=== PATIENT | male | born 1955 | race Hispanic/Latino ===

== ENCOUNTER 2019-07-11 11:35 | Emergency (ER) | payer BC ==
[2019-07-11 12:56] LABS: Absolute Lymphocytes (CBC) 1.2 K/uL (0.7-4.9); Basophils % 0.4 % (0-1.3); Hematocrit 41.9 % (39.6-49.0); Lymphocytes % 14.2 % (15.3-44.8); MPV 12.3 fL (7.6-11.3); RBC Red Blood Cell Count 4.55 M/uL (4.33-5.43)
[2019-07-11 13:13] LABS: Albumin 3.7 g/dL (3.4-5.0); Bilirubin Direct 0.3 mg/dL (0-0.2); Bilirubin Total 1.3 mg/dL (0.2-1.0); Protein, Total 7.1 g/dL (6.4-8.2)
--- NOTE | 2019-07-11 13:56 | RAD REPORT ---
EXAM DESCRIPTION: CT - Abdomen Pelvis W Contrast - 07/11/2019 1:32 pm CLINICAL HISTORY: Abdominal pain COMPARISON: 2008 TECHNIQUE: Computed axial tomography of the abdomen pelvis was obtained. 100 cc Isovue-300 was admin istered intravenously. Oral contrast was not requested which limits evaluation of bowel. All CT scans are performed using dose optimization technique as appropriate and may include automated exposure control or mA/KV adjustment according to patient size. FINDINGS: Fatty liver Spleen, pancreas, adrenal and kidneys appear unremarkable. Diverticula stem from the colon. Mild to moderate stranding is present adjacent to proximal sigmoid c olon. No extraluminal air. No abscess. Normal appendix. Small inguinal hernias contain fat IMPRESSION: Mild to moderate sigmoid diverticulitis
[2019-07-11] MEDS ORDERED: levoFLOXacin 500 MG TAB ONE (14:07)
[2019-07-11] MEDS ORDERED: metroNIDAZOLE 500 MG TABLET ONE (14:07)
--- NOTE | 2019-07-11 14:53 | EDPHYS ---
Physician Documentation [facility] Name: Deangelo Parsons Age: 64 yrs Sex: Male : 1955 Arrival Date: 07/11/2019 Time: 11:37 Bed 7 Private MD: Curt Cobian R ED Physician Isreal Shaikh HPI: 07/11 15:31 This 64 yrs old Male presents to ER via Ambulatory with complaints of kdr Abdominal Pain. 15:31 The patient presents with abdominal pain. Onset: The symptoms/episode began/occurred kdr gradually, 1 week(s) ago. The symptoms do not radiate. Associated signs and symptoms: none. The symptoms are described as achy, crampy, intermittent. Severity of pain: At its worst the pain was mild just prior to arrival, in the emergency department the pain is unchanged. The patient has not experienced similar symptoms in the past. The patient has not recently seen a physician. Historical: - Allergies: 11:40 No Known Allergies; sv - PMHx: 11:41 Hypertension; sv 11:42 Diabetes - NIDDM; sv - PSHx: 11:40 None; sv - Immunization history:: Adult Immunizations up to date. - Social history:: Smoking status: Patient/guardian denies using tobacco. - Ebola Screening: : No symptoms or risks identified at this time. ROS: 15:31 Constitutional: Negative for fever, chills, and weight loss, Eyes: Negative for injury, kdr pain, redness, and discharge, ENT: Negative for injury, pain, and discharge, Neck: Negative for injury, pain, and swelling, Cardiovascular: Negative for chest pain, palpitations, and edema, Respiratory: Negative for shortness of breath, cough, wheezing, and pleuritic chest pain, Back: Negative for injury and pain, : Negative for injury, bleeding, discharge, and swelling, MS/Extremity: Negative for injury and deformity, Skin: Negative for injury, rash, and discoloration, Neuro: Negative for headache, weakness, numbness, tingling, and seizure activity. Psych: Negative for depression, anxiety, suicide ideation, homicidal ideation, and hallucinations, Allergy/Immunology: Negative for hives, rash, and allergies, Endocrine: Negative for neck swelling, polydipsia, polyuria, polyphagia, and marked weight changes, Hematologic/Lymphatic: Negative for swollen nodes, abnormal bleeding, and unusual bruising. 15:31 Abdomen/GI: Positive for abdominal pain, Negative for nausea, vomiting, and diarrhea, rectal bleeding, bowel incontinence. Exam: 15:31 Constitutional: This is a well developed, well nourished patient who is awake, alert, kdr and in no acute distress. Head/Face: Normocephalic, atraumatic. Eyes: Pupils equal round and reactive to light, extra-ocular motions intact. Lids and lashes normal. Conjunctiva and sclera are non-icteric and not injected. Cornea within normal limits. Periorbital areas with no swelling, redness, or edema. Neck: Trachea midline, no thyromegaly or masses palpated, and no cervical lymphadenopathy. Supple, full range of motion without nuchal rigidity, or vertebral point tenderness. No Meningismus. Chest/axilla: Normal chest wall appearance and motion. Nontender with no deformity. No lesions are appreciated. Cardiovascular: Regular rate and rhythm with a normal S1 and S2. No gallops, murmurs, or rubs. Normal PMI, no JVD. No pulse deficits. Respiratory: Lungs have equal breath sounds bilaterally, clear to auscultation and percussion. No rales, rhonchi or wheezes noted. No increased work of breathing, no retractions or nasal flaring. Back: No spinal tenderness. No costovertebral tenderness. Full range of motion. Skin: Warm, dry with normal turgor. Normal color with no rashes, no lesions, and no evidence of cellulitis. MS/ Extremity: Pulses equal, no cyanosis. Neurovascular intact. Full, normal range of motion. Neuro: Awake and alert, GCS 15, oriented to person, place, time, and situation. Cranial nerves II-XII grossly intact. Motor strength 5/5 in all extremities. Sensory grossly intact. Cerebellar exam normal. Normal gait. Psych: Awake, alert, with orientation to person, place and time. Behavior, mood, and affect are within normal limits. 15:31 Abdomen/GI: Inspection: abdomen appears normal, obese Bowel sounds: active, all quadrants, diminished, Palpation: soft, mild abdominal tenderness, in the left lower quadrant, . Vital Signs: 11:40 BP 182 / 102; Pulse 92; Resp 18; Temp 99; Pulse Ox 96% ; Weight 102.06 kg; Height 5 ft. sv 7 in. (170.18 cm); 12:43 BP 167 / 92; Pulse 87; Resp 18; Pulse Ox 96% on R/A; ph 13:36 BP 175 / 97; Pulse 82; Resp 16; Pulse Ox 97% ; bp 14:10 BP 149 / 94; Pulse 86; Resp 16; Pulse Ox 97% ; bp 15:23 BP 154 / 92; Pulse 86; Resp 16; Pulse Ox 95% ; bp 11:40 Body Mass Index 35.24 (102.06 kg, 170.18 cm) sv MDM: 14:52 Patient medically screened. kdr 15:31 Data reviewed: vital signs, nurses notes, lab test result(s), radiologic studies. kdr Counseling: I had a detailed discussion with the patient and/or guardian regarding: the historical points, exam findings, and any diagnostic results supporting the discharge/admit diagnosis, lab results, radiology results, the need for outpatient follow up. 07/11 12:17 Order name: Basic Metabolic Panel; Complete Time: 13:23 kdr 07/11 12:17 Order name: CBC with Diff; Complete Time: 13:23 kdr 07/11 12:17 Order name: Creatinine for Radiology; Complete Time: 13:23 kdr 07/11 12:17 Order name: Hepatic Function; Complete Time: 13:23 kdr 07/11 12:17 Order name: Lipase; Complete Time: 13:23 kdr 07/11 12:17 Order name: CT Abd/Pelvis - IV Contrast Only; Complete Time: 14:50 kdr 07/11 12:17 Order name: IV Saline Lock; Complete Time: 12:43 kdr 07/11 12:17 Order name: Labs collected and sent; Complete Time: 12:43 kdr Administered Medications: 14:05 Drug: Flagyl 500 mg Route: PO; bp 15:24 Follow up: Response: No adverse reaction bp 14:05 Drug: LevaQUIN 500 mg Route: PO; bp 15:24 Follow up: Response: No adverse reaction bp Disposition: 07/11/19 14:52 Discharged to Home. Impression: Sigmoid Diverticulitis, Abdominal and pelvic pain. - Condition is Stable. - Discharge Instructions: Diverticulitis, [id number], Abdominal Pain, Adult, [id number]. - Prescriptions for Flagyl 500 mg Oral Tablet - take 1 tablet by ORAL route every 6 hours for 10 days; 40 tablet. Cipro 500 mg Oral Tablet - take 1 tablet by ORAL route every 12 hours for 7 days; 14 tablet. Tramadol 50 mg Oral Tablet - take 1 tablet by ORAL route every 8 hours as needed; 12 tablet. Pepcid 20 mg Oral Tablet - take 1 tablet by ORAL route once daily; 20 tablet. - Medication Reconciliation Form, Thank You Letter, Antibiotic Education, Prescription Opioid Use form. - Follow up: Curt Cobian MD; When: 2 - 3 days; Reason: If symptoms return, Further diagnostic work-up, Recheck today's complaints, Continuance of care, Re-evaluation by your physician. - Problem is new. - Symptoms have improved. Signatures: Dispatcher [employer] EDLinda Grayson, RN RN Isreal Causey MD MD [facility] Sulaiman Prado RN RN bp Corrections: (The following items were deleted from the chart) 11:41 11:40 PMHx: None; sv sv 15:25 14:52 07/11/2019 14:52 Discharged to Home. Impression: Sigmoid Diverticulitis; bp Abdominal and pelvic pain. Condition is Stable. Forms are Medication Reconciliation Form, Thank You Letter, Antibiotic Education, Prescription Opioid Use. Follow up: Curt Cobian; When: 2 - 3 days; Reason: If symptoms return, Further diagnostic work-up, Recheck today's complaints, Continuance of care, Re-evaluation by your physician. Problem is new. Symptoms have improved. kdr
--- NOTE | 2019-07-11 14:53 | ER ---
Nurse's Notes [facility] Name: Deangelo Parsons Age: 64 yrs Sex: Male : 1955 Arrival Date: 07/11/2019 Time: 11:37 Bed 7 Private MD: Curt Cobian R Diagnosis: Sigmoid Diverticulitis;Abdominal and pelvic pain Presentation: 07/11 11:39 Presenting complaint: Patient states: lower abd pain x 4 days, denies sv n/v/d/constipation/urinary problems. Transition of care: patient was not received from another setting of care. Onset of symptoms was July 07, 2019. Risk Assessment: Do you want to hurt yourself or someone else? Patient reports no desire to harm self or others. Care prior to arrival: None. 11:39 Method Of Arrival: Ambulatory sv 11:39 Acuity: JANET 2 sv 15:24 Initial Sepsis Screen: Does the patient meet any 2 criteria? No. Patient's initial bp sepsis screen is negative. Does the patient have a suspected source of infection? No. Patient's initial sepsis screen is negative. Triage Assessment: 11:51 General: Appears in no apparent distress. comfortable, Behavior is calm, cooperative, bp appropriate for age. Pain: Complains of pain in abdomen. EENT: No deficits noted. Neuro: No deficits noted. Cardiovascular: No deficits noted. Respiratory: No deficits noted. GI: Reports lower abdominal pain. : No signs and/or symptoms were reported regarding the genitourinary system. Derm: No deficits noted. Musculoskeletal: No deficits noted. Historical: - Allergies: 11:40 No Known Allergies; sv - PMHx: 11:41 Hypertension; sv 11:42 Diabetes - NIDDM; sv - PSHx: 11:40 None; sv - Immunization history:: Adult Immunizations up to date. - Social history:: Smoking status: Patient/guardian denies using tobacco. - Ebola Screening: : No symptoms or risks identified at this time. Screenin:52 Abuse screen: Denies threats or abuse. Denies injuries from another. Nutritional bp screening: No deficits noted. Tuberculosis screening: No symptoms or risk factors identified. Fall Risk None identified. Assessment: 11:51 General: SEE TRIAGE NOTE. bp 12:00 GI: Bowel sounds present X 4 quads. Abd is soft X 4 quads. bp 12:43 Reassessment: Patient appears in no apparent distress at this time. Patient and/or ph family updated on plan of care and expected duration. Pain level reassessed. Patient is alert, oriented x 3, equal unlabored respirations, skin warm/dry/pink. 14:00 Reassessment: ALL CURRENT ORDERS COMPLETED, RESULTS PENDING. bp 15:22 Reassessment: PT D/C HOME AMBULATORY WITH FAMILY, DX WITH SIGMOID DIVERTICULITIS. bp Vital Signs: 11:40 BP 182 / 102; Pulse 92; Resp 18; Temp 99; Pulse Ox 96% ; Weight 102.06 kg; Height 5 ft. sv 7 in. (170.18 cm); 12:43 BP 167 / 92; Pulse 87; Resp 18; Pulse Ox 96% on R/A; ph 13:36 BP 175 / 97; Pulse 82; Resp 16; Pulse Ox 97% ; bp 14:10 BP 149 / 94; Pulse 86; Resp 16; Pulse Ox 97% ; bp 15:23 BP 154 / 92; Pulse 86; Resp 16; Pulse Ox 95% ; bp 11:40 Body Mass Index 35.24 (102.06 kg, 170.18 cm) sv ED Course: 11:37 Patient arrived in ED. rg4 11:37 Curt Cobian MD is Private Physician. rg4 11:40 Triage completed. sv 11:40 Arm band placed on. sv 11:49 Sulaiman Prado, RN is Primary Nurse. bp 11:51 Isreal Shaikh MD is Attending Physician. kdr 11:52 Patient has correct armband on for positive identification. Bed in low position. Call bp light in reach. Side rails up X2. Adult w/ patient. 12:43 Initial lab(s) drawn, by ut, sent to lab. Inserted saline lock: 20 gauge in right ph antecubital area, using aseptic technique. Blood collected. 13:29 CT completed. Patient tolerated procedure well. Patient moved to CT via wheelchair. sw Patient moved back from CT. 13:32 CT Abd/Pelvis - IV Contrast Only In Process Unspecified. EDMS 14:51 Curt Cobian MD is Referral Physician. kdr 15:23 No provider procedures requiring assistance completed. IV discontinued, intact, bp bleeding controlled, No redness/swelling at site. Pressure dressing applied. Administered Medications: 14:05 Drug: Flagyl 500 mg Route: PO; bp 15:24 Follow up: Response: No adverse reaction bp 14:05 Drug: LevaQUIN 500 mg Route: PO; bp 15:24 Follow up: Response: No adverse reaction bp Outcome: 14:52 Discharge ordered by . kdr 15:23 Discharged to home ambulatory, with family. bp 15:23 Condition: stable 15:23 Discharge instructions given to patient, Instructed on discharge instructions, follow up and referral plans. medication usage, Demonstrated understanding of instructions, follow-up care, medications, Prescriptions given X 4. 15:25 Patient left the ED. bp Signatures: Dispatcher [employer] EDMS Linda Pritchard RN RN sv Isreal Shaikh MD MD kdr Hall, Patricia, RN RN Loren Horta Rubi [facility] Sulaiman Prado RN RN bp Corrections: (The following items were deleted from the chart) 11:41 11:39 Acuity: JANET 3 sv sv 11:41 11:40 PMHx: None; sv sv
[2019-07-11 15:30] VITALS: TEMP 99
[2019-07-11 15:35] VITALS: BP 154/92; O2SAT 95
== END 2019-07-11 15:25 | disposition home or self-care (01) ==
LOC: ER 11:35
DX: K57.32 Diverticulitis of large intestine without perforation or abscess without bleeding (principal); I10 Essential (primary) hypertension
CPT/HCPCS: 85025; 80048; 36415; 80076; 83690; 74177; 99284; Q9967